=== PATIENT | female | born 1985 | race Two or more races ===

== ENCOUNTER 2016-05-06 19:56 | Emergency (ER) | payer OTHER ==
[2016-05-06 20:00] VITALS: BP 113/71; PULSE 99; BMI 22.3
[2016-05-06 20:36] LABS: PH,URINE 5.5 (4.5-8); URINE APPEARANCE Cloudy; URINE BILIRUBIN Negative (NEGATIVE); URINE GLUCOSE (UA) Negative (NEGATIVE); URINE KETONE Trace (NEGATIVE); URINE NITRITE Negative (NEGATIVE); URINE UROBILINOGEN 0.2 E.U/dl (0.2-1.0)
[2016-05-06 20:38] LABS: URINE BLOOD 2+ (NEGATIVE); URINE COLOR YELLOW; URINE LEUK ESTERASE 3+ (NEGATIVE); URINE PROTEIN 3+ (NEGATIVE)
[2016-05-06 20:43] LABS: URINE BACTERIA MODERATE /hpf (NEGATIVE); URINE WBC LOADED (3-5)
--- NOTE | 2016-05-06 21:58 | PDOC ---
History of Present Illness - General Chief Complaint: Urinary Problem Stated Complaint: URINARY SX, FEVER Time Seen by Provider: 05/06/16 19:57 - History of Present Illness Initial Comments: This 30 y.o old woman ,s/p vaginal delivery of healthy male infant 04/01/16, presents with 2 day hx of dysuria and urinary frequency. Today, she developed fever (Tmax 103 degrees Fahrenheit )along with right lower abdominal pain.She denies vomiting or back pain. No upper respiratory symptoms/cough/rash noted. No previous hx of UTI or renal stones Past History - Past Medical History Allergies/Adverse Reactions: Allergies Allergy/AdvReac Type Severity Reaction Status Date / Time No Known Allergies Allergy Verified 05/06/16 19:56 Home Medications: Ambulatory Orders Ciprofloxacin [Cipro (Restricted To Id)] 500 mg PO Q12H #20 tablet 05/07/16 Other medical history: DENIES - Reproductive History Is Patient Now?: No - Psycho/Social/Smoking Cessation Hx Anxiety: No Suicidal Ideation: No Smoking History: Never smoked Have you smoked in the past 12 months: No Hx Alcohol Use: No Drug/Substance Use Hx: No Substance Use Type: None Review of Systems - Review of Systems Able to Perform ROS?: Yes Comments:: 12 point review of systems is negative except for what is noted in the history of present illness *Physical Exam - Vital Signs Last Vital Signs Temp Pulse Resp BP Pulse Ox 99.3 F 99 H 18 113/71 97 05/06/16 19:56 05/06/16 19:56 05/06/16 19:56 05/06/16 19:56 05/06/16 19:56 - Physical Exam Comments: adult female, alert and oriented 3, in mild distress secondary to abdominal discomfort Vital signs as noted HEAD: No contusions, abrasions or lacerations of the scalp; no facial ecchymosis , deformities or tenderness EYES: Pupils equal, round and reactive to light, extraocular movements intact, sclera anicteric, conjunctiva clear PHARYNX: No erythema, exudate or edema; mucous membranes dry NECK: Supple, nontender, no masses or bruits LUNGS: Clear to auscultation bilaterally CARDIAC: S1, S2 normal; no extra sounds, rubs or murmurs heard ABDOMEN:Normoactive bowel sounds, moderate RLQ tenderness, no masses, no organomegaly No CVA/Flank tenderness EXTREMITIES: Normal range of motion, no edema,deformity or tenderness NEUROLOGICAL: Cranial nerves II through XII grossly intact. Normal speech, normal gait.moving all 4 extremities equally, Sensation intact in all extremities. PSYCH: Normal mood, normal affect. SKIN: Warm, Dry, normal turgor, no rashes or lesions noted. ED Treatment Course - LABORATORY CBC & Chemistry Diagram: 05/06/16 22:24 05/06/16 22:24 - ADDITIONAL ORDERS Additional order review: Laboratory Results 05/06/16 20:14 Urine Color Yellow Urine Appearance Cloudy Urine pH 5.5 D Ur Specific Universal 1.020 Urine Protein 3+ H Urine Glucose (UA) Negative Urine Ketones Trace Urine Blood 2+ H Urine Nitrite Negative Urine Bilirubin Negative Urine Urobilinogen 0.2 e.u/dl Ur Leukocyte Esterase 3+ H Urine RBC 2-3 Urine WBC Loaded Ur Epithelial Cells Few Urine Bacteria Moderate Urine HCG, Qual Negative Progress Note - Progress Note Progress Note: laboratory evaluation notable for WBC of 13,200. UA :3+LE,2-3 RBC, loaded WBC, moderate Bact, few epi; PGU negative workup consistent with UTI; because the patient has right-sided abdominal tenderness, Abd/Pelv CT performed to evaluate for stone/renal abscess or appendicitis. Patient received zosyn 3.375g IV and a liter of NS IV CT(interpreted by Imaging formulation scientist) reveals ureteritis/pyelitis on the right side ; possible early pyelonephritis. No stone or abscess seen. Appendix appears normal. Patient appears markedly improved after IV fluid and IV Zosyn. Patient states that she is comfortable . Results discussed with the patient and her . She will be discharged with prescription for Cipro 500mg twice a day for 10 days. The patient does not have a general medical doctor. Referral information for Dr Sy will be given to her. The patient should return to the ER if she has worsening pain/ persistent high fever/ vomiting *DC/Admit/Observation/Transfer Diagnosis at time of Disposition: Upper urinary tract infection - Discharge Dispostion Disposition: HOME Condition at time of disposition: Stable - Prescriptions Prescriptions: Ciprofloxacin [Cipro (Restricted To Id)] 500 mg PO Q12H #20 tablet - Referrals Referrals: Clayton Sy MD [Staff Physician] - 3 days - Patient Instructions Printed Discharge Instructions: Kidney Infection Additional Instructions: drink plenty of water Cipro 500mg twice a day for 10 days tylenol as needed for pain/fever return if you have worsen fever/pain or develop vomiting see Dr Sy within1 week
[2016-05-06] MEDS ORDERED: SODIUM CHLORIDE 1,000 ML IV STA (22:19)
[2016-05-06] MEDS ORDERED: ACETAMINOPHEN 325 MG TABLET (FP) PO ONE (22:20)
[2016-05-06] MEDS ORDERED: PIPERACILLIN/TAZOB 3.375 GM 3.375 GM in DEXTROSE 5%-WATER - 50 ML IVPB ONE (22:21)
[2016-05-06] MEDS ORDERED: PIPERACILLIN/TAZOBACTAM 3.375 GM VIAL IVPB ONE (22:35)
[2016-05-06] MEDS ORDERED: ACETAMINOPHEN 325 MG TABLET (FP) ONE (22:35)
[2016-05-06 22:44] LABS: BASOPHIL 0.1 % (0-2.0); EOSINOPHIL 0.2 % (0-4.5); MCH 24.5 pg (25.7-33.7); MCHC 32.1 g/dl (32.0-36.0); MEAN CELL VOLUME 76.3 fl (80-96); MEAN PLT VOLUME 8.3 fl (7.5-11.1); PLATELET COUNT 249 K/MM3 (134-434); RDW 14.3 % (11.6-15.6); WHITE BLOOD COUNT 13.2 K/mm3 (4.0-10.0)
[2016-05-06 23:02] LABS: ALBUMIN 4.1 g/dl (3.5-5.0); BILIRUBIN,TOTAL 1.3 mg/dl (0.2-1.0); CALCIUM 9.4 mg/dl (8.4-10.2); CREATININE 1.1 mg/dl (0.6-1.3); TOT PROT 8.8 g/dl (6.4-8.3)
[2016-05-07 00:06] VITALS: TEMP 100.6
== END 2016-05-07 01:51 | disposition home or self-care (01) ==
LOC: FER 19:56
PROC: 3E03329 Introduction of Other Anti-infective into Peripheral Vein, Percutaneous Approach (ICD-10-PCS; principal; 2016-05-06)
PROC: 3E0337Z Introduction of Electrolytic and Water Balance Substance into Peripheral Vein, Percutaneous Approach (ICD-10-PCS; 2016-05-06)
DX: N39.0 Urinary tract infection, site not specified (principal)
CPT/HCPCS: 36415; 74177-TC; 80053; 81003; 81015; 84703; 85025; 87086; 87186; 96361; 96365; 99283-25